=== PATIENT | female | born 1995 ===

== ENCOUNTER 2020-11-04 15:12 | Outpatient (CLI) | payer OTHER | END 2020-11-04 16:46 | disposition home or self-care (01) | LOC: PRENATAL 15:12 | PROVIDERS: ATTEND Obstetrics & Gynecology Maternal & Fetal Medicine | DX: O35.0XX1 Maternal care for (suspected) central nervous system malformation in fetus, fetus 1 (principal); O35.3XX1 Maternal care for (suspected) damage to fetus from viral disease in mother, fetus 1; O98.512 Other viral diseases complicating pregnancy, second trimester; O28.1 Abnormal biochemical finding on antenatal screening of mother; Z36.89 Encounter for other specified antenatal screening; Z3A.22 22 weeks gestation of pregnancy ==

== ENCOUNTER 2021-01-16 10:51 | Outpatient (CLI) | payer OTHER | END 2021-01-16 11:50 | disposition home or self-care (01) | LOC: PRENATAL 10:51 | PROVIDERS: ATTEND Obstetrics & Gynecology Maternal & Fetal Medicine | DX: O26.843 Uterine size-date discrepancy, third trimester (principal); O28.1 Abnormal biochemical finding on antenatal screening of mother; O24.410 Gestational diabetes mellitus in pregnancy, diet controlled; Z36.89 Encounter for other specified antenatal screening; Z3A.34 34 weeks gestation of pregnancy ==

== ENCOUNTER 2021-02-16 09:38 | Outpatient (CLI) | payer OTHER | END 2021-02-16 10:04 | disposition home or self-care (01) | LOC: PRENATAL 09:38 | PROVIDERS: ATTEND Obstetrics & Gynecology Maternal & Fetal Medicine | DX: O26.843 Uterine size-date discrepancy, third trimester (principal); O28.1 Abnormal biochemical finding on antenatal screening of mother; O24.410 Gestational diabetes mellitus in pregnancy, diet controlled; O36.8131 Decreased fetal movements, third trimester, fetus 1; O35.0XX1 Maternal care for (suspected) central nervous system malformation in fetus, fetus 1; Z36.89 Encounter for other specified antenatal screening; Z3A.37 37 weeks gestation of pregnancy ==